=== PATIENT | female | born 1990 | race Caucasian/White ===

== ENCOUNTER 2022-11-18 09:37 | Emergency (ER) | payer MEDICAID ==
[~2022-11-18] VITALS: Ht 167.6 cm; Wt 100.0 kg
[2022-11-18 09:56] VITALS: BP 157/91; PULSE 83; TEMP 98.2; O2SAT 99
[2022-11-18] MEDS ORDERED: LIDOcaine 5% patch TP STA (11:29)
[2022-11-18] MEDS ORDERED: ketorolac trometh inj. 60 MG/2 ML VIAL IM ONE (11:30)
[2022-11-18] MEDS ORDERED: LIDO700A32 TOP (11:33)
[2022-11-18] MEDS ORDERED: CYCL-1 PO (11:33)
[2022-11-18] MEDS ORDERED: IBUP-1986 PO (11:33)
[2022-11-18] MEDS ORDERED: ketorolac trometh. 30mg/ml inj. IM ONE (11:35)
[2022-11-18 11:57] VITALS: RESP 18
== END 2022-11-18 12:08 | disposition home or self-care (01) ==
LOC: ER 09:37
DX: S39.012A Strain of muscle, fascia and tendon of lower back, initial encounter (principal); M54.31 Sciatica, right side; G89.29 Other chronic pain; Z88.1 Allergy status to other antibiotic agents; Z88.8 Allergy status to other drugs, medicaments and biological substances; X58.XXXA Exposure to other specified factors, initial encounter; Y93.89 Activity, other specified; Y92.89 Other specified places as the place of occurrence of the external cause; Y99.8 Other external cause status
CPT/HCPCS: 96372; 99283; J1885